=== PATIENT | male | born 1990 | race Caucasian/White ===

== ENCOUNTER 2018-12-02 20:33 | Emergency (ER) | payer SELFPAY ==
[~2018-12-02] VITALS: Ht 170.2 cm; Wt 63.5 kg
--- NOTE | 2018-12-02 20:47 | NUR ---
Luann ellis in [facility] - 12/02/18 at 2049 by JULI PT TAKEN TO BED 2
[2018-12-02 20:54] VITALS: BP 120/90
--- NOTE | 2018-12-02 20:54 | NUR ---
TO BED # 5 AMBULATORY, REPORT GIVEN TO ROLANDO MOREIRA
--- NOTE | 2018-12-02 20:55 | NUR ---
ASSUMED CARE OF PT AT THIS TIME. C/O WHOLE BODY "ITCHINESS" X 1 WEEK. PT DENIES ANY MEDS. AAOX4 WITH EVEN AND STEADY GAIT; PATIENT STATES PAIN OF 9/10; VSS; PATIENT POSITIONED FOR COMFORT; HOB ELEVATED; BEDRAILS UP X2; BED DOWN. ER MD MADE AWARE OF PT STATUS. WILL CONTINUE TO MONITOR.
[2018-12-02] MEDS ORDERED: diphenhydrAMINE 50 MG CAP PO ONE (21:10)
--- NOTE | 2018-12-02 22:05 | NUR ---
Dr. Marques evaluating patient at bedside.
[2018-12-02 22:25] VITALS: BP 105/62
== END 2018-12-02 22:25 | disposition home or self-care (01) ==
LOC: MED 20:33
DX: R21 Rash and other nonspecific skin eruption (principal); L29.9 Pruritus, unspecified
CPT/HCPCS: 99283; Q0163

== ENCOUNTER 2020-01-02 10:35 | Emergency (ER) | payer SELFPAY ==
[~2020-01-02] VITALS: Ht 170.2 cm; Wt 71.7 kg
[2020-01-02 10:39] VITALS: BP 105/87
--- NOTE | 2020-01-02 10:44 | NUR ---
Patient ambulated to bed 1
--- NOTE | 2020-01-02 10:46 | NUR ---
29 Y/O M C/C COUGH/RED DRY EYES X 1 DAY. PER PT HAS BEEN TAKING OTC RX WITH NO RELIEF. LUNG SOUNDS CLEAR; PT DENIES RESPIRATORY PROBLEMS. PT NKA. NO HX. NO RX. NO N/V/D. NOT TAKEN FLU SHOT/NO ONE SICK AT HOME. SIDE RAIL X1.
--- NOTE | 2020-01-02 11:06 | NUR ---
pt resting in bed, side rail x1
[2020-01-02 11:27] VITALS: BP 105/87
--- NOTE | 2020-01-02 11:27 | NUR ---
Patient discharged with v/s stable. Written and verbal after care instructions given and explained. Patient alert, oriented and verbalized understanding of instructions. Ambulatory with steady gait. All questions addressed prior to discharge. ID band removed. Patient advised to follow up with PMD. Rx of ketotifen,claritin given. Patient educated on indication of medication including possible reaction and side effects. Opportunity to ask questions provided and answered.
== END 2020-01-02 11:27 | disposition home or self-care (01) ==
LOC: MED 10:35
DX: J30.9 Allergic rhinitis, unspecified (principal); H10.9 Unspecified conjunctivitis
CPT/HCPCS: 99282

== ENCOUNTER 2021-04-03 12:04 | Emergency (ER) | payer SELFPAY ==
[~2021-04-03] VITALS: Ht 170.2 cm; Wt 73.5 kg
[2021-04-03 12:14] VITALS: BP 124/88
--- NOTE | 2021-04-03 13:29 | NUR ---
PT AMBULATED TO BED 6 WITH STEADY GAIT
[2021-04-03] MEDS ORDERED: KETOROLAC 30 MG/ML VIAL IM ONE (13:30)
--- NOTE | 2021-04-03 13:30 | NUR ---
30 Y/O MALE C/O RIGHT SIDED GROIN PAIN 08/02 DESCRIBES THROBBING INTERMITTENT X 2MONTHS. PT DENIES FEVER/CHILLS, DENIES N/V. VSS. NOT IN DISTRESS. ABLE TO AMBULATE FROM LOBBY TO BED. ERMD MADE AWARE OF PT STATUS. DENIES PMH NKA
[2021-04-03] MEDS ORDERED: NAPR-54 PO (14:09)
[2021-04-03] MEDS ORDERED: METH750T5 PO (14:09)
[2021-04-03 14:19] VITALS: BP 124/88
--- NOTE | 2021-04-03 14:19 | NUR ---
Patient discharged with v/s stable. Written and verbal after care instructions given and explained. Patient alert, oriented and verbalized understanding of instructions. Ambulatory with steady gait. All questions addressed prior to discharge. ID band removed. Patient advised to follow up with PMD. Rx of METHOCARBAMOL, NAPROXEN given. Patient educated on indication of medication including possible reaction and side effects. Opportunity to ask questions provided and answered.
== END 2021-04-03 14:19 | disposition home or self-care (01) ==
LOC: MED 12:04
DX: S39.011A Strain of muscle, fascia and tendon of abdomen, initial encounter (principal); Z79.899 Other long term (current) drug therapy; X58.XXXA Exposure to other specified factors, initial encounter; Y93.89 Activity, other specified; Y92.89 Other specified places as the place of occurrence of the external cause; Y99.8 Other external cause status
CPT/HCPCS: 36415; 81002; 87491; 96372; 99283; J1885